=== PATIENT | female | born 1955 | race Caucasian/White ===

== ENCOUNTER 2017-10-17 15:33 | Emergency (ER) | payer MEDICARE, BC ==
[2017-10-17] MEDS ORDERED: Sodium Chloride 0.9% 5 ML Syringe FLUSH PRN (15:51)
[2017-10-17] MEDS ORDERED: Aspirin 81 MG Tab.Chew PO ONE (15:53)
--- NOTE | 2017-10-17 16:09 | EDM.PDOC ---
ED HPI GENERAL MEDICAL PROBLEM - General Chief Complaint: Cardiovascular Problem Stated Complaint: CHEST PAIN Time Seen by Provider: 10/17/17 15:51 Source of Information: Reports: Patient History Limitations: Reports: No Limitations - History of Present Illness INITIAL COMMENTS - FREE TEXT/NARRATIVE: Patient is a 62-year-old female who presents to the emergency department this afternoon complaining of chest pain. Chest pain is said to have started last evening, described as pressure, last approximately 10 minutes, midsternal, and resolves spontaneously. Patient was able to sleep during the night, the pain returned again this afternoon, she decided to present to the emergency department. Patient admits to excessive anxiety because of family issues. Denies intent to hurt herself or others. Patient denies fever, shortness of breath, upper respiratory infection symptoms, out of country travel, long distance travel, or history of same in the past. Onset: Gradual Onset Date: 10/16/17 Duration: Minutes: Location: Reports: Chest Quality: Reports: Pressure Severity: Mild Improves with: Reports: Other (Spontaneously) Worsens with: Reports: None Context: Reports: Other (At rest). Denies: Sick Contact, Trauma Associated Symptoms: Reports: Chest Pain, Nausea/Vomiting. Denies: Cough, Fever /Chills, Shortness of Breath - Related Data Allergies Allergy/AdvReac Type Severity Reaction Status Date / Time hydrocodone Allergy Hives Verified 10/17/17 15:48 morphine Allergy Hives Verified 10/17/17 15:48 sertraline HCl [From Zoloft] Allergy Hallucinati Verified 10/17/17 15:48 ons Home Meds: Home Meds DULoxetine HCl [Duloxetine HCl] 30 mg PO DAILY 02/13/16 [History] Levothyroxine Sodium 137 mcg PO DAILY 02/13/16 [History] Metoprolol Succinate 50 mg PO DAILY 02/13/16 [History] Pantoprazole [ProTONIX] 40 mg PO DAILY 02/13/16 [History] buPROPion [buPROPion XL] 300 mg PO DAILY 02/13/16 [History] metFORMIN [Glucophage] 500 mg PO DAILY 02/13/16 [History] Gemfibrozil [Gemfibrozil] 600 mg PO BID 10/17/17 [History] Past Medical History HEENT History: Reports: Impaired Vision Cardiovascular History: Reports: Hypertension Neurological History: Reports: Migraines Psychiatric History: Reports: Anxiety, Depression Endocrine/Metabolic History: Reports: Hypothyroidism Social & Family History - Tobacco Use Smoking Status *Q: Current Every Day Smoker Years of Tobacco use: 30 Packs/Tins Daily: 0.5 - Recreational Drug Use Recreational Drug Use: No ED ROS GENERAL - Review of Systems Review Of Systems: ROS reveals no pertinent complaints other than HPI. Constitutional: Reports: No Symptoms HEENT: Reports: No Symptoms Respiratory: Reports: No Symptoms Cardiovascular: Reports: Chest Pain Endocrine: Reports: No Symptoms GI/Abdominal: Reports: Nausea. Denies: Constipation, Diarrhea, Vomiting : Reports: No Symptoms Musculoskeletal: Reports: No Symptoms Skin: Reports: No Symptoms Neurological: Reports: No Symptoms Psychiatric: Reports: No Symptoms Hematologic/Lymphatic: Reports: No Symptoms Immunologic: Reports: No Symptoms ED EXAM, GENERAL - Physical Exam Exam: See Below Exam Limited By: No Limitations General Appearance: Alert, WD/WN, No Apparent Distress Eye Exam: Bilateral Eye: Normal Inspection Nose: Normal Inspection, Normal Mucosa, No Blood Throat/Mouth: Normal Inspection, Normal Oropharynx, No Airway Compromise Head: Atraumatic, Normocephalic Neck: Normal Inspection, Supple, Non-Tender Respiratory/Chest: No Respiratory Distress, Lungs Clear, Normal Breath Sounds, No Accessory Muscle Use, Chest Non-Tender Cardiovascular: Regular Rate, Rhythm, No Murmur GI/Abdominal: Normal Bowel Sounds, Soft, Non-Tender Back Exam: Normal Inspection. No: CVA Tenderness (L), CVA Tenderness (R) Extremities: Normal Inspection, No Pedal Edema Neurological: Alert, Oriented, Normal Cognition Psychiatric: Normal Affect, Normal Mood Skin Exam: Warm, Dry, Intact, Normal Color, No Rash Lymphatic: No Adenopathy EKG INTERPRETATION EKG Date: 10/17/17 Time: 15:45 Rhythm: NSR Rate (Beats/Min): 85 [place]: Normal P-Wave: Present QRS: Normal ST-T: Normal QT: Normal Comparison: NA - No Prior EKG Course - Orders/Labs/Meds Orders: Active Orders 24 hr Category Date Time Status Cardiac Monitoring [RC] . DIRECTED Care 10/17/17 15:51 Ordered EKG Documentation Completion [RC] ASDIRECTED Care 10/17/17 15:52 Ordered Peripheral IV Care [RC] . DIRECTED Care 10/17/17 15:52 Ordered Chest 1V Frontal [CR] Stat Exams 10/17/17 15:52 Ordered CBC WITH AUTO DIFF [HEME] Stat Lab 10/17/17 15:51 Ordered COMPREHENSIVE METABOLIC PN,CMP [CHEM] Stat Lab 10/17/17 15:52 Ordered D-DIMER QUANTITATIVE [COAG] Stat Lab 10/17/17 15:53 Ordered INR,PT,PROTHROMBIN TIME [COAG] Stat Lab 10/17/17 15:51 Ordered LIPASE [CHEM] Stat Lab 10/17/17 15:51 Ordered MAGNESIUM [CHEM] Stat Lab 10/17/17 15:51 Ordered PTT,PARTIAL THROMBOPLSTIN TIME [COAG] Stat Lab 10/17/17 15:51 Ordered T4 FREE [CHEM] Stat Lab 10/17/17 15:53 Ordered TROPONIN I [CHEM] Stat Lab 10/17/17 15:51 Ordered TSH ULTRASENSITIVE [CHEM] Stat Lab 10/17/17 15:53 Ordered Aspirin Med 10/17/17 15:53 Once 324 mg PO ONETIME ONE Sodium Chloride 0.9% [Syrex Flush] Med 10/17/17 15:51 Ordered 5 ml FLUSH Q8HR PRN Peripheral IV Insertion Adult [OM.PC] Stat Oth 10/17/17 15:51 Ordered Saline Lock Insert [OM.PC] Stat Oth 10/17/17 15:51 Ordered EKG 12 Lead [EK] Stat Ther 10/17/17 15:52 Ordered - Radiology Interpretation Free Text/Narrative:: Chest x-ray shows no acute cardiopulmonary process - Re-Assessments/Exams Free Text/Narrative Re-Assessment/Exam: 10/17/17 16:52 Patient afebrile, nontoxic appearing, vital signs stable. Patient refused normal saline IV to correct elevated glucose. Patient takes metformin for diabetic condition. Patient states she will follow-up with her primary doctor in [place] tomorrow. Departure - Departure Time of Disposition: 16:54 Disposition: Home, Self-Care 01 Condition: Good Clinical Impression: Anxiety, Hyperglycemia Chest pain Qualifiers: Chest pain type: unspecified Qualified Code(s): R07.9 - Chest pain, unspecified Clinical Impression: (Ruled Out): Hyperglycemia due to type 2 diabetes mellitus Instructions: Hyperglycemia, [id number], Nonspecific Chest Pain, [id number] , Panic Attacks, [id number] Referrals: Lazarus Marin PA-C [Primary Care Provider] - Forms: ED Department Discharge Additional Instructions: Follow-up with PCP tomorrow as scheduled. Return to emergency department sooner if symptoms continue or worsen. - My Orders Last 24 Hours: My Active Orders 10/17/17 15:51 Cardiac Monitoring [RC] . DIRECTED CBC WITH AUTO DIFF [HEME] Stat INR,PT,PROTHROMBIN TIME [COAG] Stat LIPASE [CHEM] Stat MAGNESIUM [CHEM] Stat PTT,PARTIAL THROMBOPLSTIN TIME [COAG] Stat TROPONIN I [CHEM] Stat Sodium Chloride 0.9% [Syrex Flush] 5 ml FLUSH Q8HR PRN Peripheral IV Insertion Adult [OM.PC] Stat Saline Lock Insert [OM.PC] Stat 10/17/17 15:52 EKG Documentation Completion [RC] ASDIRECTED Peripheral IV Care [RC] . DIRECTED Chest 1V Frontal [CR] Stat COMPREHENSIVE METABOLIC PN,CMP [CHEM] Stat EKG 12 Lead [EK] Stat 10/17/17 15:53 D-DIMER QUANTITATIVE [COAG] Stat T4 FREE [CHEM] Stat TSH ULTRASENSITIVE [CHEM] Stat Aspirin 324 mg PO ONETIME ONE - Assessment/Plan Last 24 Hours: My Active Orders 10/17/17 15:51 Cardiac Monitoring [RC] . DIRECTED CBC WITH AUTO DIFF [HEME] Stat INR,PT,PROTHROMBIN TIME [COAG] Stat LIPASE [CHEM] Stat MAGNESIUM [CHEM] Stat PTT,PARTIAL THROMBOPLSTIN TIME [COAG] Stat TROPONIN I [CHEM] Stat Sodium Chloride 0.9% [Syrex Flush] 5 ml FLUSH Q8HR PRN Peripheral IV Insertion Adult [OM.PC] Stat Saline Lock Insert [OM.PC] Stat 10/17/17 15:52 EKG Documentation Completion [RC] ASDIRECTED Peripheral IV Care [RC] . DIRECTED Chest 1V Frontal [CR] Stat COMPREHENSIVE METABOLIC PN,CMP [CHEM] Stat EKG 12 Lead [EK] Stat 10/17/17 15:53 D-DIMER QUANTITATIVE [COAG] Stat T4 FREE [CHEM] Stat TSH ULTRASENSITIVE [CHEM] Stat Aspirin 324 mg PO ONETIME ONE Assessment:: Hyperglycemia, atypical chest pain, anxiety
[2017-10-17 16:42] LABS: CHLORIDE,CL 97 mmol/L (98-115); SODIUM,NA 135 mmol/L (136-145)
[2017-10-17 18:26] VITALS: BP 139/76
== END 2017-10-17 17:05 | disposition home or self-care (01) ==
LOC: KA.ED 15:33
DX: F41.9 Anxiety disorder, unspecified (principal); E11.65 Type 2 diabetes mellitus with hyperglycemia; I10 Essential (primary) hypertension; F17.210 Nicotine dependence, cigarettes, uncomplicated; Z88.5 Allergy status to narcotic agent; Z88.8 Allergy status to other drugs, medicaments and biological substances; Z79.899 Other long term (current) drug therapy; Z79.84 Long term (current) use of oral hypoglycemic drugs
CPT/HCPCS: 71045; 80053; 83036; 83690; 83735; 84439; 84443; 84484; 85025; 85379; 85610; 85730; 93005; 99285; A9270-GY

== ENCOUNTER 2020-04-10 17:00 | Emergency (ER) | payer MEDICARE, BC ==
[2020-04-10] MEDS: predniSONE 20 MG Tab PO ONE (17:20)
--- NOTE | 2020-04-10 17:24 | EDM.PDOC ---
ED HPI GENERAL MEDICAL PROBLEM - General Chief Complaint: Respiratory Problem Stated Complaint: SHORT OF BREATH,CHLORINE EXPOSURE Time Seen by Provider: 04/10/20 17:13 Source of Information: Reports: Patient History Limitations: Reports: No Limitations - History of Present Illness INITIAL COMMENTS - FREE TEXT/NARRATIVE: Patient is a 64-year-old female who presents to the emergency department via private vehicle with a complaint of shortness of breath and cough. Patient states that she was opening a canister with chlorine tablets, and water accidentally get into the container. She then inhaled the fumes from the canister and shortly thereafter developed shortness of breath. Patient does have a history of sleep apnea. However, no other pulmonary conditions. Patient denies liquid getting on skin, mouth, or nose, chest pain, fever, nausea or vomiting. Onset: Sudden Onset Time: 16:30 Duration: Hour(s): Location: Reports: Other (Inhalation) Quality: Reports: Burning Severity: Mild Improves with: Reports: None Worsens with: Reports: Breathing Associated Symptoms: Reports: Cough, Shortness of Breath. Denies: Chest Pain, cough w sputum, Diaphoresis, Fever/Chills, Nausea/Vomiting - Related Data Allergies Allergy/AdvReac Type Severity Reaction Status Date / Time hydrocodone Allergy Hives Verified 10/17/17 15:48 morphine Allergy Hives Verified 10/17/17 15:48 sertraline HCl [From Zoloft] Allergy Hallucinati Verified 10/17/17 15:48 ons Home Meds: Home Meds DULoxetine HCl [Duloxetine HCl] 30 mg PO DAILY 02/13/16 [History] Levothyroxine Sodium 137 mcg PO DAILY 02/13/16 [History] Metoprolol Succinate 50 mg PO DAILY 02/13/16 [History] Pantoprazole [ProTONIX] 40 mg PO DAILY 02/13/16 [History] buPROPion [buPROPion XL] 150 mg PO DAILY 02/13/16 [History] metFORMIN [Glucophage] 500 mg PO BID 02/13/16 [History] Gemfibrozil 600 mg PO BID 10/17/17 [History] Past Medical History HEENT History: Reports: Impaired Vision Cardiovascular History: Reports: Hypertension [employer] History: Reports: Musculoskeletal History: Reports: Other (See Below) Other Musculoskeletal History: fibromyalgia Neurological History: Reports: Migraines Psychiatric History: Reports: Anxiety, Depression Endocrine/Metabolic History: Reports: Hypothyroidism Social & Family History - Family History Family Medical History: Noncontributory - Caffeine Use Caffeine Use: Reports: Soda ED ROS GENERAL - Review of Systems Review Of Systems: Comprehensive ROS is negative, except as noted in HPI. Constitutional: Reports: No Symptoms HEENT: Reports: No Symptoms Respiratory: Reports: Shortness of Breath, Cough. Denies: Wheezing, Pleuritic Chest Pain, Sputum, Hemoptysis Cardiovascular: Reports: No Symptoms. Denies: Chest Pain Endocrine: Reports: No Symptoms GI/Abdominal: Reports: No Symptoms : Reports: No Symptoms Musculoskeletal: Reports: No Symptoms Skin: Reports: No Symptoms Neurological: Reports: No Symptoms Psychiatric: Reports: No Symptoms Hematologic/Lymphatic: Reports: No Symptoms Immunologic: Reports: No Symptoms ED EXAM, GENERAL - Physical Exam Exam: See Below Exam Limited By: No Limitations General Appearance: Alert, WD/WN, Mild Distress Eye Exam: Bilateral Eye: Normal Inspection Nose: Normal Inspection, Normal Mucosa, No Blood Throat/Mouth: Normal Inspection, Normal Lips, Normal Oropharynx, Normal Voice, No Airway Compromise Head: Atraumatic, Normocephalic Neck: Normal Inspection, Supple Respiratory/Chest: No Respiratory Distress, Lungs Clear, Normal Breath Sounds, No Accessory Muscle Use, Chest Non-Tender. No: Respiratory Distress, Crackles, Rales, Rhonchi, Wheezing Cardiovascular: Regular Rate, Rhythm, No Murmur GI/Abdominal: Normal Bowel Sounds, Soft Extremities: Normal Inspection, No Pedal Edema Neurological: Alert, Oriented, Normal Cognition Psychiatric: Normal Affect, Normal Mood Skin Exam: Warm, Dry, Intact, Normal Color, No Rash Course - Orders/Labs/Meds Orders: Active Orders 24 hr Category Date Time Status RT Aerosol Therapy [RC] ASDIRECTED Care 04/10/20 17:15 Ordered Meds: Medications Discontinued Medications Generic Name Dose Route Start Last Admin Trade Name Freq PRN Reason Stop Dose Admin Albuterol 2.5 mg 04/10/20 17:15 Proventil Neb Soln NEB 04/10/20 17:16 ONETIME ONE Prednisone 40 mg 04/10/20 17:15 Prednisone PO 04/10/20 17:16 ONETIME ONE - Re-Assessments/Exams Free Text/Narrative Re-Assessment/Exam: 04/10/20 17:56 Patient afebrile, vital signs stable, bilateral breath sounds clear, patient feels much better after albuterol and prednisone administered. Patient's daughters are at bedside. She will be discharged and the daughters have assured me that they will be with her for the evening. She will return to emergency department if shortness of breath returns. Departure - Departure Time of Disposition: 17:57 Disposition: Home, Self-Care 01 Condition: Good Clinical Impression: Chlorine inhalation lung injury - Discharge Information Instructions: Steps to Quit Smoking, [id number], Chemical Inhalation Injury, Adult Referrals: Jacki Richardson MD [Primary Care Provider] - Forms: ED Department Discharge Additional Instructions: Follow-up with Dr. Arguelles in one to 2 days. Return to emergency department sooner if symptoms continue or worsen. - My Orders Last 24 Hours: My Active Orders 04/10/20 17:15 RT Aerosol Therapy [RC] ASDIRECTED - Assessment/Plan Last 24 Hours: My Active Orders 04/10/20 17:15 RT Aerosol Therapy [RC] ASDIRECTED Assessment:: Chlorine inhalation Plan: Follow-up with PCP tomorrow
[2020-04-10] MEDS: Albuterol 0.083% 2.5 MG/3 ML Neb Soln NEB ONE ×2 (17:26→18:19)
[2020-04-10 18:21] VITALS: BP 138/68; PULSE 92
== END 2020-04-10 18:40 | disposition home or self-care (01) ==
LOC: KA.ED 17:00
DX: T59.4X1A Toxic effect of chlorine gas, accidental (unintentional), initial encounter (principal); E03.9 Hypothyroidism, unspecified; I10 Essential (primary) hypertension; F32.9 Major depressive disorder, single episode, unspecified; Z88.5 Allergy status to narcotic agent; Z88.8 Allergy status to other drugs, medicaments and biological substances; Z79.899 Other long term (current) drug therapy
CPT/HCPCS: 94640; 99283; 99284-25; J7512; J7613-GY

== ENCOUNTER 2023-04-13 07:45 | Day surgery (SDC) | payer BC, MEDICARE ==
[2023-04-13] MEDS ORDERED: Sodium Chloride 0.9% 10 ML Syringe FLUSH PRN (08:00)
[2023-04-13 08:12] LABS: GLUCOSE,POC 119 mg/dL (70-140)
[2023-04-13] MEDS: Lactated Ringers 1,000 ML IV SCH (08:17)
[2023-04-13] MEDS ORDERED: Midazolam 1 MG/ML 2 ML SDV ONE (09:30)
[2023-04-13] MEDS ORDERED: Propofol 200 MG/20 ML SDV ONE (09:30)
[2023-04-13 11:59] VITALS: BP 121/70; PULSE 80
== END 2023-04-13 11:24 | disposition home or self-care (01) ==
LOC: KA.SDS 07:45
PROVIDERS: ATTEND Surgery
DX: D12.3 Benign neoplasm of transverse colon (principal); D12.5 Benign neoplasm of sigmoid colon; K57.30 Diverticulosis of large intestine without perforation or abscess without bleeding; K64.4 Residual hemorrhoidal skin tags; E11.9 Type 2 diabetes mellitus without complications; I10 Essential (primary) hypertension; Z88.5 Allergy status to narcotic agent; Z88.8 Allergy status to other drugs, medicaments and biological substances; Z79.890 Hormone replacement therapy; Z79.899 Other long term (current) drug therapy
CPT/HCPCS: 00812; 82947; J2250; J2704; J7120